=== PATIENT | female | born 1990 | race Caucasian/White ===

== ENCOUNTER 2016-12-02 13:23 | Inpatient (IN) | payer OTHER ==
[~2016-12-02] VITALS: Ht 165.1 cm; Wt 72.1 kg
[2016-12-02 13:49] VITALS: Ht 165.1 cm; Wt 72.1 kg
[2016-12-02] MEDS ORDERED: PRENAT PO (13:49)
[2016-12-02 13:50] VITALS: BP 109/73; PULSE 96; RESP 18
[2016-12-02] MEDS ORDERED: BUTORPHANOL 2 MG INJ IV PRN (14:30)
[2016-12-02] MEDS ORDERED: METHYLERGONOVINE 0.2 MG INJ IM PRN (14:30)
[2016-12-02] MEDS ORDERED: LACTATED RINGER'S 1,000 ML IV PRN (14:30)
[2016-12-02] MEDS ORDERED: CARBOPROST 250 MCG INJ IM PRN (14:30)
[2016-12-02] MEDS ORDERED: OXYTOCIN 30 UNITS/LR 500 ML IV SCH ×2 (14:30)
[2016-12-02] MEDS ORDERED: IBUPROFEN 600 MG TAB PO PRN (14:30)
[2016-12-02] MEDS ORDERED: AMPICILLIN 2 GM/NS (PMX) 100 ML IV ONE (14:30)
[2016-12-02] MEDS ORDERED: OXYTOCIN 30 UNITS/LR 500 ML IV PRN (14:30)
[2016-12-02] MEDS ORDERED: MINERAL OIL LIGHT 10 ML VIAL TOP ONE (14:30)
[2016-12-02] MEDS ORDERED: LIDOCAINE 1% (MPF) 30 ML INJ INJ PRN (14:30)
[2016-12-02] MEDS ORDERED: MISOPROSTOL 200 MCG TAB PR PRN (14:30)
[2016-12-02] MEDS: LACTATED RINGER'S 1,000 ML IV SCH ×2 (15:28→22:57)
[2016-12-02 15:39] LABS: ADD SCAN DIFF NO
[2016-12-02 15:41] LABS: BASOPHILS % 0.1 % (0.0-2.0); EOSINOPHILS % 0.1 % (0.0-7.0); HEMATOCRIT 36.1 % (37.0-47.0); HEMOGLOBIN 12.1 g/dl (12.0-16.0); LYMPHOCYTES # 1.1 10^3/ul (0.8-2.9); LYMPHOCYTES % 11.9 % (15.0-51.0); MEAN CORPUSCULAR HEMOGLOBIN 32.6 pg (29.0-33.0); MEAN CORPUSCULAR HGB CONC 33.5 g/dl (32.0-37.0); MEAN CORPUSCULAR VOLUME 97.3 fl (82.0-101.0); MONOCYTE # 0.6 10^3/ul (0.3-0.9); MONOCYTES % 5.9 % (0.0-11.0); NEUTROPHIL # 7.6 10^3/ul (1.6-7.5); NEUTROPHILS % 81.4 % (39.0-77.0); PLATELET COUNT 148 10^3/UL (140-415); RED BLOOD COUNT 3.71 10^6/ul (4.20-5.40); RED CELL DISTRIBUTION WIDTH 12.8 % (11.5-14.5); WHITE BLOOD COUNT 9.3 10^3/ul (4.8-10.8)
[2016-12-02 15:57] LABS: INR 0.91; PROTIME 12.3 Sec (12.2-14.2)
[2016-12-02 15:58] LABS: PARTIAL THROMBOPLASTIN TIME 27.5 Sec (25.0-35.0)
[2016-12-02] MEDS ORDERED: FENTAnyl 2MCG/ML-ROPIV 0.2% 100 ML ONE (16:41)
[2016-12-02] MEDS ORDERED: FENTAnyl 2MCG/ML-ROPIV 0.2% 100 ML BAG EPI SCH (17:00)
[2016-12-02] MEDS ORDERED: NALOXONE (0.4 MG/ML) INJ IV PRN (17:00)
[2016-12-02] MEDS: AMPICILLIN 1 GM/NS (PMX) 50 ML IV SCH ×2 (19:13→23:54)
[2016-12-02] MEDS ORDERED: ONDANSETRON 4 MG INJ IV PRN (20:30)
[2016-12-03] VITALS (10 sets, daily range): BP systolic 90–118; BP diastolic 53–73; PULSE 69–94; RESP 16–18
[2016-12-03] MEDS: AMPICILLIN 1 GM/NS (PMX) 50 ML IV SCH (03:55)
[2016-12-03] MEDS: LACTATED RINGER'S 1,000 ML IV SCH (05:49)
--- NOTE | 2016-12-03 09:19 | HP ---
Date/Time of Note Date/Time of Note DATE: 12/03/16 TIME: 08:21 OB - History Hx of Present Free Text/Dictation 26y.o primigravida known to have twin gestation at 35 weeks sent from antepartum test room for extended observation to triage , for BBV was decrease on one of twin who has single umbilical artery and showing uterine contractions. during observations ,found to be in early labor and admitted for primary section. u/s revealed Vx/Vx , labor progessed well cervix dilated to 5cm/ decided to allow her to vaginal delivery with double setting which patient desired for Chief Complaint: uterine contractiooooooons Estimated Due Date: Jan 06, 2017 : 1 Para: 0 Spontaneous : 0 Therapeutic : 0 Care: Other Ultrasounds: Normal mid trimester US Obstetrical Complications: Other (twin gestation) Medical Complications: None Past Family/Social History * Past Medical, Surgical, Family and Obstetric Histories reviewed from chart. Blood Type: O+ Rubella: immune RPR/VDRL: Negative GBS Status: Positive HBsAG: Negative OB Admission Exam Vital Signs Vital Signs Vital Signs Date Time Temp Pulse Resp B/P Pulse Ox O2 Delivery O2 Flow Rate FiO2 12/03/16 08:15 84 18 106/53 99 Room Air 12/03/16 07:45 98.4 Physical Exam HEENT: WNL Heart: Rhythm Normal Lungs: Clear, Equal Abdomen: WNL Extremities: Normal Reflexes: Normal Cervical Dilatation: 2cm Effacement: 50% Station: -3 Membranes: Intact Amniotic Fluid: Unevaluable Accelerations: Accelerations Present Decelerations: Variable Decelerations Varibility: Minimum ( one of twin) Contractions on Admission: < 5 Minutes Apart Intensity: Mild Last 72 hours Lab Results CBC & BMP 12/02/16 15:25 OB Assessment/Plan Other Assessment: twin gestation 35w in labor Plan: Expectant Management TUTU GUILLEN MD Dec 03, 2016 08:31
--- NOTE | 2016-12-03 09:28 | LDN ---
Date/Time of Note Date/Time of Note DATE: 12/03/16 TIME: 09:20 Delivery Summary twin A meconium stained fluid light Weeks of Gestation 35w1d Placenta Delivered: Spontaneously (after twin B delivered) Meconium: Light Episiotomy: No Perineal laceration: 1 Laceration repair: 0000ch gut bilateral inner labia minora Anesthesia type: Epidural Estimated blood loss: 300 Sponge & Needle done & correct: Yes All needle counts correct: Yes Any foreign bodies felt in the: No Problems: Delivery Information Sex Infant Sex: female Apgars 1 Minute: 8 5 Minute: 9 Suctioning Nose & mouth suctioned at [place]: Yes Umbilical Cord Umbilical cord with: 2 Vessels Cord presentations: nuchal cord Nuchal cord present X: 2 Cord Blood was obtained: Yes Delivery Information Sex Infant Sex: female Apgars 1 Minute: 8 5 Minute: 9 Suctioning Nose & mouth suctioned at [place]: Yes Umbilical Cord Umbilical cord with: 3 Vessels Cord presentations: no nuchal cord Cord Blood was obtained: Yes Mother & Baby Disposition Disposition twin A 4lb 11oz sinle umbilical artery twin B 4lb 6oz Mom & Baby to Maternity; Good: Yes Mom transferred to: ICU (both twins t o NICU) Baby to NICU: Yes TUTU GUILLEN MD Dec 03, 2016 09:28
[2016-12-03] MEDS ORDERED: METHYLERGONOVINE 0.2 MG INJ IM PRN (10:00)
[2016-12-03] MEDS ORDERED: OXYTOCIN 30 UNITS/LR 500 ML IV PRN (10:00)
[2016-12-03] MEDS ORDERED: LANOLIN 7 GM TUBE TOP PRN (10:00)
[2016-12-03] MEDS ORDERED: WITCH HAZEL/GLYCERIN PAD PR PRN (10:00)
[2016-12-03] MEDS ORDERED: BENZOCAINE 20% 56 ML SPRAY TOP PRN (10:00)
[2016-12-03] MEDS ORDERED: CARBOPROST 250 MCG INJ IM PRN (10:00)
[2016-12-03] MEDS ORDERED: OXYCODONE/ASPIRIN (4.88/325) TAB PO PRN ×2 (10:00)
[2016-12-03] MEDS ORDERED: ZOLPIDEM 5 MG TAB PO PRN (10:00)
[2016-12-03] MEDS ORDERED: MISOPROSTOL 200 MCG TAB PR PRN (10:00)
[2016-12-03] MEDS: IBUPROFEN 600 MG TAB PO SCH ×3 (12:13→23:58)
[2016-12-03] MEDS: SENNA/DOCUSATE NA (8.6MG/50MG) TAB PO SCH (21:16)
[2016-12-04 04:00] VITALS: BP 102/58; PULSE 66; RESP 18
[2016-12-04] MEDS: IBUPROFEN 600 MG TAB PO SCH ×4 (05:49→23:26)
[2016-12-04 07:18] LABS: ADD SCAN DIFF NO
[2016-12-04 07:27] LABS: BASOPHILS % 0.2 % (0.0-2.0); EOSINOPHILS # 0.1 10^3/ul (0.0-0.5); EOSINOPHILS % 0.4 % (0.0-7.0); HEMATOCRIT 34.4 % (37.0-47.0); HEMOGLOBIN 11.6 g/dl (12.0-16.0); LYMPHOCYTES # 2.2 10^3/ul (0.8-2.9); LYMPHOCYTES % 17.2 % (15.0-51.0); MEAN CORPUSCULAR HEMOGLOBIN 33.6 pg (29.0-33.0); MEAN CORPUSCULAR HGB CONC 33.7 g/dl (32.0-37.0); MEAN CORPUSCULAR VOLUME 99.7 fl (82.0-101.0); MEAN PLATELET VOLUME 12.9 fl (7.4-10.4); MONOCYTE # 0.7 10^3/ul (0.3-0.9); MONOCYTES % 5.9 % (0.0-11.0); NEUTROPHIL # 9.5 10^3/ul (1.6-7.5); NEUTROPHILS % 75.5 % (39.0-77.0); PLATELET COUNT 142 10^3/UL (140-415); RED BLOOD COUNT 3.45 10^6/ul (4.20-5.40); RED CELL DISTRIBUTION WIDTH 13.2 % (11.5-14.5); WHITE BLOOD COUNT 12.6 10^3/ul (4.8-10.8)
[2016-12-04 08:00] VITALS: BP 105/65; PULSE 65; RESP 18
[2016-12-04] MEDS: SENNA/DOCUSATE NA (8.6MG/50MG) TAB PO SCH ×2 (13:22→20:23)
[2016-12-04 16:00] VITALS: BP 97/69; PULSE 76; RESP 16
[2016-12-04 20:00] VITALS: BP 105/69; PULSE 66; RESP 17
[2016-12-05 04:00] VITALS: BP 101/70; PULSE 67; RESP 17
[2016-12-05] MEDS: IBUPROFEN 600 MG TAB PO SCH ×3 (05:58→17:41)
[2016-12-05 08:20] VITALS: BP 110/66; PULSE 60; RESP 18
[2016-12-05] MEDS ORDERED: DIPHTH/TET/ACEL PERTUSS (ADULT) 0.5 ML VIAL IM* ONE (09:00)
[2016-12-05] MEDS: SENNA/DOCUSATE NA (8.6MG/50MG) TAB PO SCH ×2 (09:38→21:00)
[2016-12-05 16:10] VITALS: BP 104/64; PULSE 65; RESP 18
--- NOTE | 2016-12-05 16:56 | PN ---
Date/Time of Note Date/Time of Note DATE: 12/05/16 TIME: 16:52 OB Subjective Subjective Subjective no c/o OB Objective Objective Objective vss afebrile fundus firm lochia min calf neg for tenderness OB Assessment/Plan Other Assessment: s/p normal vaginal delivery stable Other plan: discharge home TUTU GUILLEN MD Dec 05, 2016 16:56
--- NOTE | 2016-12-05 17:09 | PD.PPDC ---
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
--- NOTE | 2016-12-05 17:40 | PD.PPDC ---
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
--- NOTE | 2016-12-05 17:40 | PD.PPDC ---
MD DO [facility] Discharge Instruction Diagnosis Final Diagnosis: s/p normal vaginal delivery twin gestation Condition Patient Condition: Stable Diet Diet: Resume Regular Diet Activity/Restrictions Activity: May Shower Restrictions: No Lifting No Sexual Activity Nothing in the Vagina No [place] No Tampons, douche Follow-up Follow-up with Physician: 6, Week/Weeks Return to clinic for [employer] Instructions: Fever greater than 101 Chills Worsening abdominal pain Excessive Vaginal Bleeding More than 2 pads per hour Unable to tolerate diet OB Instructions: Breast Tenderness Depression Blurried Vision Headache TUTU GUILLEN MD Dec 05, 2016 17:40
[2016-12-05 19:45] VITALS: BP 103/60; PULSE 65; RESP 18
[2016-12-06] MEDS: IBUPROFEN 600 MG TAB PO SCH ×2 (00:31→06:04)
[2016-12-06 04:30] VITALS: BP 105/73; PULSE 78; RESP 18
--- NOTE | 2016-12-06 05:41 | DS ---
Date/Time of Note Date/Time of Note DATE: 12/06/16 TIME: 05:39 Obstetrical Discharge Record Final Diagnosis Final Diagnosis: delivered Other Final Diagnosis IUP 35w twin gestation Vaginal Delivery Obstetrical Delivery: Spontaneous Complications Augmentation: No Induction: No Rupture of Membranes: No Condition on Discharge Physical Assessment Last Vitals: vss afebrile Voiding: Yes Bowel Movement: Yes Breast: Soft, non-tender Fundus: Firm Calf Tenderness: No Patient Condition: Stable TUTU GUILLEN MD Dec 06, 2016 05:41
[2016-12-06 07:30] VITALS: BP 108/65; PULSE 56; RESP 18
[2016-12-06] MEDS: SENNA/DOCUSATE NA (8.6MG/50MG) TAB PO SCH (09:00)
== END 2016-12-06 17:07 | disposition home or self-care (01) | DRG 775 ==
LOC: OBT 13:23 → L-D 13:24 → OBT 14:11 → L-D 14:13 → PP1 12-03 09:39
PROVIDERS: ADMIT Obstetrics & Gynecology; ATTEND Obstetrics & Gynecology
PROC: 10E0XZZ Delivery of Products of Conception, External Approach (ICD-10-PCS; principal; 2016-12-03)
PROC: 0HQ9XZZ Repair Perineum Skin, External Approach (ICD-10-PCS; 2016-12-03)
DX: O69.81X1 Labor and delivery complicated by cord around neck, without compression, fetus 1 (principal); O60.14X2 Preterm labor third trimester with preterm delivery third trimester, fetus 2; O30.003 Twin pregnancy, unspecified number of placenta and unspecified number of amniotic sacs, third trimester; Z37.2 Twins, both liveborn; O70.0 First degree perineal laceration during delivery; Z3A.35 35 weeks gestation of pregnancy
CPT/HCPCS: 62319; 85025; 85610; 85730; 86592; 86900; 86901; 87340; 88307; 90715; 99464; G0463; J0290; J2405; J2590; J3010; J7120